=== PATIENT | male | born 1950 | race Caucasian/White ===

== ENCOUNTER 2017-05-24 07:53 | Inpatient (IN) | payer MEDICARE, OTHER ==
[2017-05-14 13:34] LABS: BASOPHILS 0.8 %; BASOPHILS ABSOLUTE 0.05 10/3/uL (0.0-0.16); EOSINOPHILS ABSOLUTE 0.53 10/3/uL (0.0-0.53); HEMATOCRIT 43.6 % (40.0-51.0); HEMOGLOBIN 14.6 g/dL (13.6-17.8); IMMATURE GRANULOCYTES 0.3 %; IMMATURE GRANULOCYTES ABSOLUTE 0.02 10/3/uL (0.0-0.11); LYMPHOCYTES 20.5 %; LYMPHOCYTES ABSOLUTE 1.21 10/3/uL (0.67-4.30); MANUAL DIFF NO %; MEAN CORPUS HGB CONC 33.5 g/dL (32.0-36.0); MEAN CORPUSCULAR HEMOGLOB 32.3 pg (26.0-34.0); MEAN CORPUSCULAR VOLUME 96.5 fL (80-100); MEAN PLATELET VOLUME 9.7 fL (9.2-13.0); MONOCYTES 11.7 %; MONOCYTES ABSOLUTE 0.69 10/3/uL (0.21-1.20); NEUTROPHILS 57.7 %; NEUTROPHILS ABSOLUTE 3.41 10/3/uL (2.02-8.40); PLATELET COUNT 227 10/3/uL (150-400); RBC DISTRIBUTION WIDTH 14.2 % (12.0-16.0); RED CELL COUNT 4.52 10/6/uL (4.7-6.1); WHITE BLOOD CELLS 5.9 10/3/uL (4.5-10.5)
[2017-05-14 13:39] LABS: INTERNATIONAL NORMAL RATI 1.2 UNITS (-); PARTIAL THROMBO TIME 35.3 SEC (22.5-37.2); PROTIME (NOT ORD) 14.8 SEC (12.0-14.5)
[2017-05-14 13:48] LABS: ALBUMIN 3.2 G/DL (3.5-5.0); ALKALINE PHOSPHATASE 57 U/L (45-117); CALCIUM, SERUM 8.7 MG/DL (8.5-10.4); CHLORIDE, SERUM 98 MMOL/L (96-112); CO2 (CARBON DIOXIDE) 32 MMOL/L (24-34); CREATININE 1.01 MG/DL (0.70-1.30); GFR AFRICAN AMERICAN 90 ML/MIN (>=60); GFR NON AFRICAN AMERICAN 78 ML/MIN (>=60); GLOBULIN 3.1 G/DL (2.5-4.1); POTASSIUM, SERUM 3.4 MMOL/L (3.5-5.3); SGOT(AST) 18 U/L (5-40); SGPT(ALT) 18 U/L (5-65); SODIUM, SERUM 137 MMOL/L (135-148); TOTAL BILIRUBIN 0.6 MG/DL (0-1.2); TOTAL PROTEIN 6.3 G/DL (6.0-8.5)
[2017-05-14 13:49] LABS: BUN (BLOOD UREA NITROGEN) 5 MG/DL (6-23); GLUCOSE, SERUM 192 MG/DL (60-99)
[2017-05-14 14:08] LABS: ASCORBIC ACID (UR NOT ORDER) NEG (NEG); BILIRUBIN, URINE NEGATIVE (NEG); KETONE, URINE NEGATIVE (NEG); LEUKOCYTE ESTERASE(NOT OR NEG (NEG); WBC (NOT ORDERED) (RFLEX) < 1 (0-5)
[~2017-05-24] VITALS: Ht 188 cm; Wt 104.8 kg
--- NOTE | ~2017-05-24 | OP ---
Record Of Operation [facility] [address] [place]. [address] NAME: CHIKA SOSA : 52 STATUS : ADM IN PAT#: [id number] AGE: 66 ADM/REG DATE : 05/24/17 MR#: [id number] REPORT SERV DATE: 05/25/17 DICTATED BY: ANNE MARIE ROBBINS DATE: 05/24/17 REPORT STATUS : Draft TRANSCRIBED BY: MODL DATE: 05/24/17 DATE OF PROCEDURE: 05/24/2017 PREOPERATIVE DIAGNOSIS: Left severe osteoarthritis. POSTOPERATIVE DIAGNOSIS: Left severe osteoarthritis. PROCEDURE: Left total shoulder arthroplasty. SURGEON: Anne Marie Robbins M.D. COMPLICATIONS: None. ANESTHESIA: General endotracheal with regional block per anesthesia. IMPLANT: Brittany Biomet Glenoid, Brittany anatomic stem. INDICATIONS: This 66-year-old male had severe osteoarthritis with retroversion of the glenoid. He wished to proceed with operative intervention after discussion of the above. DESCRIPTION OF PROCEDURE: The patient was induced in supine position. He was taken to beach chair position with care to maintain the cervical lordosis. A time-out protocol was enforced. Ancef was administered. A deltopectoral approach was utilized. Cephalic vein was taken laterally. Subdeltoid adhesions were released. There were copious adhesions present and copious severe bursitis, which was debrided. We released the pectoralis 1 cm from its insertion and soft tissue tenodesed the long head of the biceps. There was severe synovitis in the distal aspect of the long head of the biceps, which we debrided with a rongeur. A lesser tuberosity osteotomy was performed. The capsule was released, the fibrofatty layer was ascertained. All the osteophytes were removed with osteotomes and rongeurs. We then made a freehand neck cut and sequentially reamed up to a 12 distally. We were able to broach to a 14. We then turned attention to the glenoid. A Fukuda retractor was placed. We released the inferior capsule. The axillary nerve was protected while we released a very thick capsule. This glenoid was severely retroverted almost 40 degrees. We released the labrum and ascertained the mechanical axis. We then corrected the anterior osteophyte back down to 15 degrees. We obtained 60% coverage of the glenoid and placed that in mechanical alignment with the scapula. The hybrid fixation of the Biomet Glenoid was selected. We utilized a low viscosity cement peripherally and then placed cement on the back of the implant. This was impacted and attention was turned back to the humerus. We secured multiple drill holes in the humerus and placed FiberWires around the stem. We then repaired the subscapularis lesser tuberosity osteotomy with multiple Krackow sutures and interlocking Jairon-Marlon sutures transosseously and around the stem. We closed the rotator interval and over sewed the holes construct with FiberWires. The wound was irrigated copiously with pulsatile lavage and tranexamic acid. The patient tolerated Record Of Operation [facility] [address] [place]. [address] NAME: CHIKA SOSA : 52 STATUS : ADM IN [facility]#: [id number] AGE: 66 ADM/REG DATE : 05/24/17 MR#: [id number] REPORT SERV DATE: 05/25/17 DICTATED BY: ANNE MARIE ROBBINS. DATE: 05/24/17 REPORT STATUS : Draft TRANSCRIBED BY: MODL DATE: 05/24/17 the procedure well. He was taken back to the PACU in stable condition. POSTOP PLAN: Elbow range of motion, pendulums with subscap protection for six weeks, total shoulder protocol. THOMAS/LEEANNEL Anne Marie Robbins M.D. / [id number] CC: Anne Marie Robbins M.D.
[~2017-05-24 07:53] MED LIST: CELEXA10 PO; DIOVAN320 MG PO; ELIQUIS 5 MG TAB5 MG PO; ENDOCET1 TA3 PO; IBU800 PO; LEXAPRO10 PO; LIPITOR20 PO; NABUMETONE750 MG PO; NORV5 PO; PERCOCET 10/3251 TAB PO; PRADAXA150 MG PO; TRILIPIX135 MG PO; ULTRAM50 PO; VITAMIN D31000 UNIT PO; ZOCOR40 PO; [UNRECOGNIZED DRUG - CODE]
[2017-05-25 05:23] LABS: HEMOGLOBIN 12.7 g/dL (13.6-17.8)
[2017-05-25 05:37] LABS: CALCIUM, SERUM 7.9 MG/DL (8.5-10.4); CHLORIDE, SERUM 102 MMOL/L (96-112); CO2 (CARBON DIOXIDE) 30 MMOL/L (24-34); CREATININE 1.07 MG/DL (0.70-1.30); GFR AFRICAN AMERICAN 84 ML/MIN (>=60); GFR NON AFRICAN AMERICAN 72 ML/MIN (>=60); SODIUM, SERUM 139 MMOL/L (135-148)
[2017-05-25 05:38] LABS: BUN (BLOOD UREA NITROGEN) 10 MG/DL (6-23); GLUCOSE, SERUM 136 MG/DL (60-99); POTASSIUM, SERUM 4.5 MMOL/L (3.5-5.3)
[2017-05-25] MEDS ORDERED: PR25 PO (15:36)
[2017-05-25] MEDS ORDERED: PERCOCET 7.5/321 TAB PO (15:36)
== END 2017-05-25 18:47 | disposition home or self-care (01) | DRG 483 ==
LOC: ENRESERVTM → ENRESERV → ENRESERVDT → SDC/OF 07:53 → 3SO 07:53 → PACU 15:29 → 3SO 16:42
PROVIDERS: Orthopaedic Surgery Sports Medicine
PROC: 0RRK0JZ Replacement of Left Shoulder Joint with Synthetic Substitute, Open Approach (ICD-10-PCS; principal; 2017-05-24 09:45)
DX: M19.012 Primary osteoarthritis, left shoulder (principal); I48.91 Unspecified atrial fibrillation; I10 Essential (primary) hypertension; Z87.891 Personal history of nicotine dependence; S43.392A Subluxation of other parts of left shoulder girdle, initial encounter; G47.33 Obstructive sleep apnea (adult) (pediatric); E78.5 Hyperlipidemia, unspecified; Z85.828 Personal history of other malignant neoplasm of skin; Z90.79 Acquired absence of other genital organ(s); Z85.46 Personal history of malignant neoplasm of prostate
CPT/HCPCS: 36415; 73030-LT; 80048; 80053; 81001; 82962; 85014; 85018; 85025; 85610; 85730; 86850; 86900; 86901; 88305; 88311; 93005; 97110-GP; 97116-GP; 97161-GP; A9270-GY; C1776; J0690; J2250; J2270; J2370; J2405; J2710; J2795; J3010